=== PATIENT | male | born 1980 | race African-American/Black ===

== ENCOUNTER 2024-01-01 09:41 | Emergency (ER) | payer SELFPAY ==
[2024-01-01] VITALS (15 sets, daily range): BP systolic 101–168; BP diastolic 65–106; PULSE 55–80; RESP 12–27; TEMP 36.4; O2SAT 98–100; BMI 29.2
--- NOTE | 2024-01-01 10:05 | DI.RAD.S_ITS ---
PROCEDURE: XR CHEST 1V INDICATIONS: chest pain TECHNIQUE: One view of the chest was acquired. COMPARISON: None. FINDINGS: Surgical changes and devices: None. Lungs and pleura: Low lung volumes. No dense consolidation or pleural effusion Mediastinum: Heart size within normal limits allowing for low lung volumes Bones and chest wall: No suspicious bony lesions. Overlying soft tissues appear unremarkable. IMPRESSION: Single view radiograph without acute abnormality. Dictated by: Pepe Brown M.D. on 01/01/2024 at 12:06 Approved by: Pepe Brown M.D. on 01/01/2024 at 12:07
--- NOTE | 2024-01-01 10:08 | PC.NURSE ---
pt states he has a heart irregularity. In triage pt was having some Pvcs. Hr 45-75. ekg being obtained. denies cp
[2024-01-01 10:21] LABS: Add Manual Diff / Slide Review NO; Basophils Absolute Auto 0 /uL (0-100); Basophils Percent Auto 0.7 % (0-2); Eosinophils Absolute Auto 200 /uL (0-450); Eosinophils Percent Auto 2.9 % (2-4); Hematocrit 42.7 % (41-53); Lymphocytes Absolute Auto 1700 /uL (1100-4500); Lymphocytes Percent Auto 30.7 % (25-40); Mean Corpuscular HGB Conc 32.9 % (30-36); Mean Corpuscular Hemoglobin 27.3 PG (26-34); Mean Corpuscular Volume 83.1 fL (80-100); Monocytes Absolute Auto 700 /uL (0-900); Neutrophils Absolute Auto 3000 /uL (1500-7000); Neutrophils Percent Auto 53.7 % (50-75); Platelet Count 243 X10^3/uL (150-400); Red Blood Cell Count 5.14 X10^6/uL (4.5-5.9); Red Cell Distribution Width 13.7 % (11.6-14.8); White Blood Cell Count 5.5 X10^3/uL (4.5-11.0)
--- NOTE | 2024-01-01 10:30 | PC.NURSE ---
PT reports right arm was numb when he work up. Numbness has resolved, but he reports pain in his right arm and weakness. Denies chest pain. He reports SOB/worsening dizziness when exherting himself and climbing steps.
[2024-01-01 10:32] LABS: Prothrombin Time 11.7 SECONDS (9.4-12.5)
[2024-01-01 10:34] LABS: PTT Partial Thromboplastin Tim 33 SECONDS (25.1-36.5)
[2024-01-01 10:37] LABS: Alanine Aminotransferase 31 IU/L (<50); Albumin 4.9 g/dL (3.5-5.0); Albumin Globulin Ratio 1.7 (1.0-2.8); Alkaline Phosphatase 61 U/L (38-126); Aspartate Aminotransferase 39 IU/L (17-59); BUN Creatinine Ratio 30.3 (6-22); Bilirubin Total 0.5 mg/dL (0.2-1.3); Blood Urea Nitrogen 23 mg/dL (9-20); Calcium 9.8 mg/dL (8.4-10.2); Carbon Dioxide 29 mmol/L (22-32); Chloride 106 mmol/L (98-107); Creatine Kinase 687 U/L (55-170); Estimated Glomerular Filt Rate > 60 mL/min (>60); Globulin 2.9 g/dL (1.7-4.1); Glucose 95 mg/dL (70-100); HEMOLYSIS < 15 (0-50); Lipase 59 U/L (23-300); Magnesium 2.2 mg/dL (1.6-2.3); Potassium 4.5 mmol/L (3.4-5.1); Sodium 137 mmol/L (137-145); Total Protein 7.8 g/dL (6.3-8.2)
[2024-01-01 10:47] LABS: Troponin I < 0.012 ng/mL (0.01-0.034)
--- NOTE | 2024-01-01 12:46 | ED_ITS ---
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 He states he does not have a history of hypertension or cardiac disease. He had a shoulder separation on the right side when he was playing football and has mild persistent deformity that does not particularly bother him. He is occasional migraine headaches. Over the last weeks he has not had any dyspnea, orthopnea, no recent viral syndrome. No lower extremity edema. He awoke this morning and found that his right arm was numb. With shaking the arm it eventually seemed to improve. He is concerned that there is slight decreased strength in the right side and perhaps decreased sensation in a C6 distribution. He comes in for further evaluation. Related Data Previous Rx's Medication Instructions Recorded metoprolol tartrate 25 mg tablet 25 mg PO BID #120 tabs 01/01/24 Allergies Allergy/AdvReac Type Severity Reaction Status Date / Time No Known Drug Allergies Allergy Verified 01/01/24 10:01 Review of Systems Review of Systems Narrative: Pertinent positive and negative findings as per HPI Patient History Social History Smoking Status: Former smoker Smoking Status: Former smoker tobacco type: cigarettes alcohol intake frequency: 0-2 drinks per day Substance Use Type: does not use Exam Initial Vital Signs Initial Vital Signs: Vital Signs Temperature 97.5 F L 01/01/24 09:55 Pulse Rate 75 01/01/24 09:55 Respiratory Rate 14 01/01/24 09:55 Blood Pressure 168/106 H 01/01/24 09:55 Pulse Oximetry 100 01/01/24 09:55 Oxygen Delivery Method Room Air 01/01/24 09:55 General: Healthy appearing, in no acute distress. Able to give a complete and coherent history. Well-nourished well-developed HEENT: Moist mucous membranes, normal sclera with reactive pupils, Neck: No cervical spine tenderness to palpation. No radicular pain reproduced with compression and neck manipulation. He does have a deformity over the right AC joint consistent with prior AC separation. Respiratory: Lungs are clear to auscultation, no wheezing no rales no rhonchi. Full and symmetrical air movement Cardiac: Regular rate and rhythm no murmurs no bruits Abdomen: Soft, nontender, good bowel tones, no flank pain Skin: Warm and dry, no rashes Neurologic: Grossly neurologically intact with no obvious asymmetries or abnormalities. There is a question of very mild decreased sensation in a C6 distribution on the right upper extremity. Certainly subtle if present. No gross abnormality with strength. With testing lower extremity strength standing and doing single leg lifts he seems to do well. Extremities: No trauma, well perfused Psych: Cooperative, appropriate insight and affect Course Orders Ordered: ED Orders 01/01/24 10:05 XR chest 1V Stat EKG-12 Lead Stat 01/01/24 10:10 Complete Blood Count AUTO DIFF Stat Comprehensive Metabolic Panel Stat Lipase Stat Magnesium Stat PTT Partial Thromboplastin Solitario Stat Prothrombin Time INR Stat Troponin & CK Cardiac Panel Stat 01/01/24 13:23 EC echo doppler complete Stat Discontinued Medications Aspirin (Aspirin 81 Mg Chew Tab) 324 mg PO NOW ONE Stop: 01/01/24 10:05 Vital Signs Vital signs: Vital Signs - 8 hr 01/01/24 09:55 01/01/24 10:04 01/01/24 10:22 Temperature 97.5 F L Pulse Rate 75 80 Respiratory Rate 14 22 Blood Pressure 168/106 H 137/80 Pulse Oximetry 100 100 Oxygen Delivery Method Room Air 01/01/24 10:22 01/01/24 10:30 01/01/24 10:35 Temperature Pulse Rate 77 73 70 Respiratory Rate 23 20 19 Blood Pressure Pulse Oximetry 99 99 99 Oxygen Delivery Method Room Air 01/01/24 10:35 01/01/24 11:00 01/01/24 11:00 Temperature Pulse Rate 69 Respiratory Rate 16 Blood Pressure 129/91 H 135/86 Pulse Oximetry 99 Oxygen Delivery Method Room Air 01/01/24 11:30 01/01/24 11:30 01/01/24 12:00 Temperature Pulse Rate 72 70 Respiratory Rate 17 20 Blood Pressure 133/86 Pulse Oximetry 98 99 Oxygen Delivery Method 01/01/24 12:01 01/01/24 12:01 01/01/24 12:30 Temperature Pulse Rate 69 Respiratory Rate 22 Blood Pressure 101/79 119/76 Pulse Oximetry 99 Oxygen Delivery Method 01/01/24 12:30 01/01/24 13:00 01/01/24 13:00 Temperature Pulse Rate 55 L 70 Respiratory Rate 12 27 H Blood Pressure 136/93 H Pulse Oximetry 99 Oxygen Delivery Method 01/01/24 16:35 01/01/24 16:36 01/01/24 16:36 Temperature Pulse Rate 80 Respiratory Rate Blood Pressure 153/75 H Pulse Oximetry 100 100 Oxygen Delivery Method Medical Decision Making Lab Data 01/01/24 10:10 01/01/24 10:10 Labs: Lab Results 01/01/24 Range/Units 10:10 WBC 5.5 (4.5-11.0) X10^3/uL RBC 5.14 (4.5-5.9) X10^6/uL Hgb 14.0 (13.5-17.5) g/dL Hct 42.7 (41-53) % MCV 83.1 (80-100) fL MCH 27.3 (26-34) PG MCHC 32.9 (30-36) % RDW 13.7 (11.6-14.8) % Plt Count 243 (150-400) X10^3/uL Neut % (Auto) 53.7 (50-75) % Lymph % (Auto) 30.7 (25-40) % [place] % (Auto) 12.0 (3-14) % Eos % (Auto) 2.9 (2-4) % Baso % (Auto) 0.7 (0-2) % Neut # (Auto) 3000 (2172-4074) /uL Lymph # (Auto) 1700 (7318-9081) /uL [place] # (Auto) 700 (0-900) /uL Eos # (Auto) 200 (0-450) /uL Baso # (Auto) 0 (0-100) /uL PT 11.7 (9.4-12.5) SECONDS INR 1.0 (0.9-1.3) APTT 33 (25.1-36.5) SECONDS Sodium 137 (137-145) mmol/L Potassium 4.5 (3.4-5.1) mmol/L Chloride 106 (98-107) mmol/L Carbon Dioxide 29 (22-32) mmol/L BUN 23 H (9-20) mg/dL Creatinine 0.76 (0.66-1.25) mg/dL Estimated GFR > 60 (>60) mL/min BUN/Creatinine Ratio 30.3 H (6-22) Glucose 95 (70-100) mg/dL Calcium 9.8 (8.4-10.2) mg/dL Magnesium 2.2 (1.6-2.3) mg/dL Total Bilirubin 0.5 (0.2-1.3) mg/dL AST 39 (17-59) IU/L ALT 31 (<50) IU/L Alkaline Phosphatase 61 (38-126) U/L Total Creatine Kinase 687 H (55-170) U/L Troponin I < 0.012 (0.01-0.034) ng/mL Total Protein 7.8 (6.3-8.2) g/dL Albumin 4.9 (3.5-5.0) g/dL Globulin 2.9 (1.7-4.1) g/dL Albumin/Globulin Ratio 1.7 (1.0-2.8) Lipase 59 (23-300) U/L MDM Narrative Medical decision making narrative: CC: Right arm paresthesia Complicating co-morbidities: No known medical history. 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 Has not seen a medical provider for a number of years Data collected from: patient Social determinants of health that may influence the patients condition: Patient leads a fairly healthy life. Working on the [employer] he does not have the opportunity to drink, use recreational drugs, smoke. Differential considered: Radicular pain, stroke. Compression neuropathy from sleeping in an odd position Exam documented above, pertinent findings include: Exam is entirely benign. I am not able to objectively Lab Test results independently reviewed as above. Pertinent findings: Independently reviewed EKG: Sinus rhythm at a rate of 68 with frequent PVCs to the point of bigeminy and trigeminy. No ischemic changes, normal intervals and normal axis aside from the frequent PVCs Imaging studies independently reviewed: Chest x-ray is unremarkable without cardiomegaly or infiltrates Echocardiogram preliminary report from inspector automatic typewriter indicates upper normal left ventricular size with low-normal systolic ejection function, ejection fraction 50-55%. Mildly enlarged right ventricle with normal function. There is mild mitral regurgitation. No prior echos for comparison. Consultations:Dr Whitlock- discussion regarding frequent PVCs to the point of bigeminy and trigeminy. His recommendation was an echocardiogram, trial of metoprolol consideration of a stress test. Treatments: 25 mg of metoprolol tartrate b.i.d. prescription given. First dose given in the emergency department Discussion: Otherwise healthy 43-year-old gentleman with radicular arm pain in the right arm that is improving over the course of the day. At this point I do not think additional workup is warranted and given the fact that symptoms are improving I do not think steroids are going to be needed. Incidentally noted were very frequent PVCs to the point of bigeminy throughout most of his ER visit. He does not drink, use drugs, no excessive energy drinks. He has not aware of the frequent PVCs. Blood pressure was in the 130s over 90s. Spoke with Cardiology and an echocardiogram was obtained in the emergency department, and place the patient on 25 mg of metoprolol tartrate b.i.d. to diminish the PVCs and hopefully treat his blood pressure. You will need to buy a blood pressure cuff and keep track of numbers. 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 We negotiated the workup today, medications were filled, I am hoping he will be able to get a blood pressure cuff before he is able to get back on chips. I will call him tomorrow with results from the echocardiogram. Discharge Plan Departure Patient Disposition: Home Clinical Impression: Arm paresthesia, right, Bigeminy, Elevated blood pressure reading Instructions: DI for High Blood Pressure Activity Restrictions/Additional Instructions: Thank you for coming in today I think your arm complaint is going to resolve completely. I think that this is a pinched nerve in the neck or somewhere down your arm. This is not a stroke. Your blood work was reassuring and did not show any evidence of heart attack Your heart rate and rhythm did catch my attention. You had frequent early heartbeats to the point that you had regular/early, regular/early, regular/early beats. This pattern is called bigeminy and is not necessarily a problem. However I would like to have a more thorough assessment of your heart to make sure that we can prevent any future heart issues We were able to do an echocardiogram in the emergency department. I will give you a call tomorrow to discuss results In the meantime, I have given you a prescription for metoprolol to be taken twice a day. You do need to buy a blood pressure cuff and you do need to check blood pressures daily. Please write the numbers down. You need to see a primary care physician and/or inspector automatic typewriter for follow up at some point in the near future. Your blood pressure goal is 120/70 or lower. If your blood pressures consistently below 100/60, go back to 1 pill a day and if it stays that low than discontinue the metoprolol When you do follow up with the physician, please let them know the echocardiogram report from inspector automatic typewriter indicates upper normal left ventricular size with low-normal systolic ejection function, ejection fraction 50-55%. Mildly enlarged right ventricle with normal function. There is mild mitral regurgitation. No prior echos for comparison. If you are having new or different symptoms please return to the ER Prescriptions: New metoprolol tartrate 25 mg tablet 25 mg PO BID Qty: 120 3RF Referrals: Miscellaneous,Doctor, [Primary Care Provider] - Stand Alone Forms: Patient Portal/API, Work Release Note
--- NOTE | 2024-01-01 13:23 | DI.ECHO.S_ITS ---
[place] +---------+ Hospital : : [address] : : [place] : : [id number] : : Phone: [phone] Echocardiogram Report + + :Name: LIANNE RYAN Study Date: 01/01/2024 Height: 71 in : :Hospital ReadingLocation: Weight: 210 lb : : Gender: Male BSA: 2.2 m2 : :: 1980 Age: 43 yrs BP: 136/93 mmHg: :Reason For Study: FREQUENT PVCS : :Ordering Physician: LIZBETH, : :FIDE Flores Performed By: Yajaira Niño : :Referring: PILY BLACKMAN : + + Interpretation Summary 1) Upper normal left ventricular size with low normal systolic function (EF 50-55%). 2) Mildly enlarged right ventricle with normal function. 3) There is mild mitral regurgitation. 4) No prior Echo available for comparison. Procedure: A two-dimensional transthoracic echocardiogram with color flow and Doppler was performed. The study quality was technically adequate. There is no prior echocardiogram noted for this patient. The patient had frequent PVCs during the exam. Left Ventricle: Left ventricular wall thickness is borderline increased. Left ventricular size is at the upper limits of normal. The ejection fraction is estimated to be 50-55%. There are no focal wall motion abnormalities. Diastolic parameters suggest a relaxation abnormality of the left ventricle, consistent with probable normal filling pressures. Right Ventricle: The right ventricle is mildly dilated. The right ventricular systolic function is normal. Atria: The left atrial size is normal. Right atrial size is normal. There is no Doppler evidence for an interatrial shunt. Mitral Valve: The mitral valve leaflets appear mildly thickened, but open well. There is mild mitral regurgitation. Aortic Valve: The aortic valve is trileaflet. The aortic valve opens well. There is no aortic valve stenosis. No aortic regurgitation is present. Tricuspid Valve: The tricuspid valve is normal in structure and function. There is trace tricuspid regurgitation. Pulmonary artery pressures cannot be estimated because of the lack of a measurable TR jet velocity. Pulmonic Valve: The pulmonic valve leaflets are thin and pliable; valve motion is normal. There is mild pulmonic regurgitation. Great Vessels: The aortic root is normal size. The dimensions of the ascending aorta are normal. The IVC is of normal diameter and collapses greater than 50% with a sniff. This suggests a low right atrial pressure of 3 mm Hg. Pericardium/ Pleura There is no pericardial effusion. There is no pleural effusion. MMode/2D Measurements & Calculations LVIDd: 5.8 cm LVOT diam: 2.3 cm LVIDs: 4.2 cm Ao root diam: 3.2 cm FS: 26.4 % asc Aorta Diam: 3.6 cm EPSS: 1.3 cm Ao Arch Diam (Prox Trans): 3.1 cm IVSd: 1.1 cm LVPWd: 1.0 cm LV hemphill. diameter/BSA (cm/m^2): 2.7 LV sys. diameter/BSA (cm/m^2): 2.0 LA A2 area: 17.5 cm2 RA long axis: 4.4 cm LA A4 area: 14.9 cm2 RA area: 13.3 cm2 LA length (vol): 5.6 cm RA vol: 34.2 ml LA vol: 39.9 ml RA : 15.9 ml/m2 LA vol index: 18.5 ml/m2 IVC diam: 1.5 cm RVD1 (basal): 4.1 cm RVD2 (mid): 3.1 cm TAPSE: 2.7 cm Doppler Measurements & Calculations Ao V2 max: 183.2 cm/sec LVOT Max Suzy: 106.0 cm/sec Ao V2 mean: 134.2 cm/sec LV V1 max P.5 mmHg Ao max P.4 mmHg LV V1 VTI: 21.4 cm Ao mean P.9 mmHg ELADIO(I,D): 2.2 cm2 Ao V2 VTI: 38.7 cm ELADIO(V,D): 2.3 cm2 sev ratio: 0.55 ELADIO indexed to BSA (cm^2/m^2): 1.0 MV E max suzy: 37.9 cm/sec PA V2 max: 99.0 cm/sec MV A max suzy: 43.3 cm/sec PA V2 mean: 72.9 cm/sec MV E/A: 0.88 PA mean P.3 mmHg Med Peak E' Suzy: 10.4 cm/sec PA pr(Accel): 22.5 mmHg E/E' med: 3.6 Lat Peak E' Suzy: 6.0 cm/sec E/E' lat: 6.3 E/e' average: 5.0 MV dec time: 0.28 sec SV(LVOT): 85.8 ml Reading Physician:04:23 PM
== END 2024-01-01 17:32 | disposition home or self-care (01) ==
PROVIDERS: Emergency Provider Emergency Medicine
DX: R00.8 Other abnormalities of heart beat (principal); M79.601 Pain in right arm; R20.2 Paresthesia of skin; R03.0 Elevated blood-pressure reading, without diagnosis of hypertension
CPT/HCPCS: 36415; 71045; 80053; 82550; 83690; 83735; 84484; 85025; 85610; 85730; 93005; 93306; 99284